=== PATIENT | male | born 1975 | race Caucasian/White ===

== ENCOUNTER 2017-01-29 11:41 | Emergency (ER) | payer BC ==
[~2017-01-29] VITALS: Ht 185.4 cm; Wt 81.6 kg
[~2017-01-29 11:41] MED LIST: AUGMENTIN 875 M1 TAB PO; BACTRIM DS 8001 TA1 PO; BENADRYL25 M2 PO; CEPHALEXIN500 M1 PO; CIPRO500 MG PO; LIDEX 0.05% CRE15 GM T; MEDROL DOSEPAK4 MG PO; MOBIC15 MG PO; Motrin,Rufen800 MG PO; NORFLEX100 MG PO; PREDNISONE10 MG PO; ULTRAM50 MG PO; VICODIN 5/500 505 MG PO; VICODIN 500 MG-1 TAB PO; VOLTAREN50 M1 PO
[2017-01-29] MEDS ORDERED: Bactrim DS PO (11:47)
[2017-01-29] MEDS ORDERED: CLINDAMYCIN150 MG PO (11:53)
[2017-01-29] MEDS ORDERED: NAPROSYN500 MG PO (11:53)
== END 2017-01-29 12:01 | disposition home or self-care (01) ==
LOC: ED 11:41
DX: K04.7 Periapical abscess without sinus (principal); R03.0 Elevated blood-pressure reading, without diagnosis of hypertension; F17.200 Nicotine dependence, unspecified, uncomplicated

== ENCOUNTER 2017-08-28 13:44 | Emergency (ER) | payer BC ==
[~2017-08-28] VITALS: Ht 185.4 cm; Wt 92.5 kg
[~2017-08-28 13:44] MED LIST changes: +Bactrim DS PO; +CLINDAMYCIN150 MG PO; +NAPROSYN500 MG PO
[2017-08-28] MEDS ORDERED: Motrin,Rufen800 MG PO (15:13)
== END 2017-08-28 15:19 | disposition home or self-care (01) ==
LOC: ED 13:44
DX: S49.91XA Unspecified injury of right shoulder and upper arm, initial encounter (principal); F17.200 Nicotine dependence, unspecified, uncomplicated; W19.XXXA Unspecified fall, initial encounter; Y93.89 Activity, other specified; Y92.89 Other specified places as the place of occurrence of the external cause; Y99.8 Other external cause status

== ENCOUNTER 2017-09-27 07:17 | Emergency (ER) | payer BC ==
[~2017-09-27] VITALS: Ht 185.4 cm; Wt 93.0 kg
[2017-09-27 07:44] LABS: BASO # 0.1 10*3/uL (0.0-0.1); BASO % 0.6 % (0.0-1.0); EOS # 0.5 10*3/uL (0.0-0.4); EOS % 3.2 % (1.0-4.0); HEMATOCRIT 48.7 % (42.0-52.0); HEMOGLOBIN 16.9 g/dl (14.0-18.0); LYMPH # 2.8 10*3/uL (1.3-4.4); LYMPH % 17.9 % (27.0-41.0); MEAN CELL VOLUME 90.9 fl (80.0-94.0); MEAN CORPUSCULAR HGB 31.5 pg (27.0-31.0); MEAN CORPUSCULAR HGB CONC 34.7 g/dl (33.0-37.0); MEAN PLATELET VOLUME 8.6 fl (9.6-12.3); MONO # 1.5 10*3/uL (0.1-1.0); MONO % 9.3 % (3.0-9.0); NEUT # 10.8 10*3/uL (2.3-7.9); NEUT % 68.4 % (47.0-73.0); PLATELET COUNT AUTOMATED 387 10*3/uL (130-400); RED BLOOD COUNT 5.36 10*6/uL (4.50-5.90); RED CELL DISTRI WIDTH 12.5 % (0-14.5); WHITE BLOOD COUNT 15.7 10*3/uL (4.8-10.8)
[2017-09-27 08:04] LABS: ALBUMIN 3.7 gm/dl (3.1-4.5); ALKALINE PHOSPHATASE 122 U/L (45-117); BUN 9 mg/dl (7-24); CHLORIDE 108 mmol/L (98-107); CREATININE 0.97 mg/dL (0.70-1.30); POTASSIUM 3.8 mmol/L (3.5-5.1); SGOT/AST 19 IU/L (3-35); SGPT/ALT 36 U/L (12-78); SODIUM 140 mmol/L (136-145); TOTAL PROTEIN 7.6 gm/dL (6.4-8.2)
[2017-09-27 08:07] LABS: TROPONIN I < 0.015 ng/ml (<0.045)
[2017-09-27] MEDS ORDERED: AMOXICILLIN500 M2 PO (09:08)
[2017-09-27] MEDS ORDERED: CLINDAMYCIN150 MG PO (09:22)
[2017-09-27] MEDS ORDERED: Motrin,Rufen800 MG PO (09:22)
== END 2017-09-27 09:51 | disposition home or self-care (01) ==
LOC: ED 07:17
PROVIDERS: Emergency Medicine
DX: R07.9 Chest pain, unspecified (principal); K04.7 Periapical abscess without sinus; Z98.890 Other specified postprocedural states; Z79.899 Other long term (current) drug therapy

== ENCOUNTER → 2018-05-10 | Outpatient (CLI) | payer BC ==
[~2018-05-10] MED LIST changes: +AMOXICILLIN500 M2 PO
== END | disposition home or self-care (01) ==
LOC: LAB 18:01
DX: Z01.812 Encounter for preprocedural laboratory examination (principal)

== ENCOUNTER 2018-05-29 12:51 | Emergency (ER) | payer BC ==
[~2018-05-29] VITALS: Ht 185.4 cm; Wt 83.9 kg
[2018-05-29] MEDS ORDERED: SEPTDS PO (13:29)
== END 2018-05-29 13:41 | disposition home or self-care (01) ==
LOC: ED 12:51
DX: S40.862A Insect bite (nonvenomous) of left upper arm, initial encounter (principal); L03.114 Cellulitis of left upper limb; W57.XXXA Bitten or stung by nonvenomous insect and other nonvenomous arthropods, initial encounter; Y93.89 Activity, other specified; Y92.89 Other specified places as the place of occurrence of the external cause; Y99.8 Other external cause status

== ENCOUNTER → 2020-06-04 | Outpatient (CLI) | payer BC ==
[~2020-06-04] MED LIST changes: +PERCOCET 7.5-31 EACH PO; +SEPTDS PO
== END | disposition home or self-care (01) ==
LOC: COVID19 15:05
PROVIDERS: ATTEND Family Medicine
DX: Z20.828 Contact with and (suspected) exposure to other viral communicable diseases (principal)

== ENCOUNTER 2020-11-23 18:33 | Emergency (ER) | payer BC ==
[~2020-11-23] VITALS: Wt 89.8 kg
[2020-11-23 19:17] LABS: BASO # 0.1 10*3/uL (0.0-0.1); BASO % 0.5 % (0.0-1.0); EOS % 0.2 % (1.0-4.0); HEMATOCRIT 47.2 % (42.0-52.0); LYMPH # 1.4 10*3/uL (1.3-4.4); LYMPH % 11.5 % (27.0-41.0); MEAN CELL VOLUME 90.1 fl (80.0-94.0); MEAN CORPUSCULAR HGB 31.7 pg (27.0-31.0); MEAN CORPUSCULAR HGB CONC 35.2 g/dl (33.0-37.0); MEAN PLATELET VOLUME 9.3 fl (9.6-12.3); MONO # 1.1 10*3/uL (0.1-1.0); MONO % 9.2 % (3.0-9.0); NEUT # 9.5 10*3/uL (2.3-7.9); NEUT % 78.1 % (47.0-73.0); PLATELET COUNT AUTOMATED 265 10*3/uL (130-400); RED BLOOD COUNT 5.24 10*6/uL (4.50-5.90); RED CELL DISTRI WIDTH 11.6 % (0-14.5); WHITE BLOOD COUNT 12.1 10*3/uL (4.8-10.8)
[2020-11-23 19:34] LABS: ALBUMIN 3.1 gm/dl (3.1-4.5); ALKALINE PHOSPHATASE 93 U/L (45-117); BUN 7 mg/dl (7-24); CHLORIDE 100 mmol/L (98-107); CREATININE 0.91 mg/dL (0.70-1.30); POTASSIUM 3.9 mmol/L (3.5-5.1); SGOT/AST 13 IU/L (3-35); SGPT/ALT 26 U/L (12-78); SODIUM 131 mmol/L (136-145); TOTAL PROTEIN 7.6 gm/dL (6.4-8.2)
== END 2020-11-23 22:00 | disposition home or self-care (01) ==
LOC: ED 18:33
PROVIDERS: Internal Medicine
DX: A41.9 Sepsis, unspecified organism (principal); Z20.822 Contact with and (suspected) exposure to COVID-19; B34.9 Viral infection, unspecified; R79.82 Elevated C-reactive protein (CRP); E87.1 Hypo-osmolality and hyponatremia

== ENCOUNTER 2020-12-04 18:13 | Emergency (ER) | payer BC ==
[~2020-12-04] VITALS: Wt 86.2 kg
[2020-12-04] MEDS ORDERED: PREDNISONE20 M1 PO (20:25)
== END 2020-12-04 20:37 | disposition home or self-care (01) ==
LOC: ED 18:13
DX: G51.0 Bell's palsy (principal); Z98.890 Other specified postprocedural states

== ENCOUNTER → 2020-12-09 | Outpatient (CLI) | payer BC ==
[~2020-12-09] MED LIST changes: +PREDNISONE20 M1 PO
[2020-12-09 17:52] LABS: BASO % 0.2 % (0.0-1.0); EOS % 0.1 % (1.0-4.0); HEMATOCRIT 40.4 % (42.0-52.0); LYMPH # 1.8 10*3/uL (1.3-4.4); LYMPH % 10.1 % (27.0-41.0); MEAN CORPUSCULAR HGB CONC 33.7 g/dl (33.0-37.0); MEAN PLATELET VOLUME 8.6 fl (9.6-12.3); MONO # 0.7 10*3/uL (0.1-1.0); MONO % 3.6 % (3.0-9.0); NEUT # 15.2 10*3/uL (2.3-7.9); NEUT % 85.1 % (47.0-73.0); PLATELET COUNT AUTOMATED 634 10*3/uL (130-400); RED BLOOD COUNT 4.39 10*6/uL (4.50-5.90); RETICULOCYTE % 0.92 % (0.50-2.50); WHITE BLOOD COUNT 17.9 10*3/uL (4.8-10.8)
[2020-12-09 18:00] LABS: BILIRUBIN Negative (Negative); BLOOD Negative (Negative); CLARITY Clear (Clear); COLOR Yellow (Yellow); GLUCOSE Negative (Negative); KETONE Negative (Negative); LEUKO ESTERASE Negative (Negative); NITRITE Negative (Negative); SPECIFIC GRAVITY 1.025 (1.001-1.030)
[2020-12-09 18:08] LABS: ALBUMIN 2.5 gm/dl (3.1-4.5); ALKALINE PHOSPHATASE 94 U/L (45-117); BUN 14 mg/dl (7-24); CHLORIDE 106 mmol/L (98-107); CHOLESTEROL 151 mg/dL (<200); GAMMA GLUTAMYL TRANSPEPTIDASE 62 U/L (15-85); IRON 37 ug/dL (65-175); LDL CHOLESTEROL 96 mg/dL (9-159); POTASSIUM 3.4 mmol/L (3.5-5.1); SGOT/AST 12 IU/L (3-35); SODIUM 138 mmol/L (136-145); TOTAL IRON BINDING CAPACITY 236 ug/dl (250-450); TRIGLYCERIDES 94 mg/dl (<150); URIC ACID 2.5 mg/dL (3.5-7.2)
[2020-12-09 18:16] LABS: SGPT/ALT 36 U/L (12-78)
[2020-12-09 18:23] LABS: BACTERIA 1+; CALCIUM OXALATE CRYSTALS Trace; EPITHELIAL CELLS 0-2; MUCOUS 1+; RBC 0-2 rbc/hpf (0-2)
[2020-12-09 19:04] LABS: FERRITIN 346.1 ng/mL (22.0-322.0); VITAMIN D, 25-HYDROXY 65.6 ng/mL (30-100)
[2020-12-10 08:08] LABS: RHEUMATOID ARTHRITIS FACTOR <10.0 IU/mL (0.0-13.9)
[2020-12-10 15:07] LABS: ANTI-DSDNA ANTIBODIES 1 IU/mL (0-9)
== END | disposition home or self-care (01) ==
LOC: LAB 17:13
PROVIDERS: ATTEND Family Medicine
DX: E78.5 Hyperlipidemia, unspecified (principal); R79.89 Other specified abnormal findings of blood chemistry; R53.83 Other fatigue; E55.9 Vitamin D deficiency, unspecified

== ENCOUNTER → 2021-01-20 | Outpatient (CLI) | payer BC ==
[2021-01-20 17:57] LABS: HEMATOCRIT 42.5 % (42.0-52.0); MEAN CELL VOLUME 92.4 fl (80.0-94.0); MEAN CORPUSCULAR HGB 31.3 pg (27.0-31.0); MEAN CORPUSCULAR HGB CONC 33.9 g/dl (33.0-37.0); MEAN PLATELET VOLUME 8.5 fl (9.6-12.3); PLATELET COUNT AUTOMATED 417 10*3/uL (130-400); RED CELL DISTRI WIDTH 13.6 % (0-14.5); RETICULOCYTE % 1.74 % (0.50-2.50); WHITE BLOOD COUNT 12.5 10*3/uL (4.8-10.8)
[2021-01-20 18:24] LABS: IRON 55 ug/dL (65-175); TOTAL IRON BINDING CAPACITY 303 ug/dl (250-450)
[2021-01-20 18:36] LABS: TOTAL CELLS COUNTED 100 #CELLS
[2021-01-20 18:37] LABS: PLATELET SUFFICIENCY HIGH (NORMAL)
[2021-01-21 05:06] LABS: TOTAL PROTEIN, SERUM 6.8 g/dL (6.0-8.5)
[2021-01-21 16:08] LABS: A/G RATIO 1.1 (0.7-1.7); ALBUMIN 3.6 g/dL (2.9-4.4); ALPHA-1-GLOBULIN 0.3 g/dL (0.0-0.4); ALPHA-2-GLOBULIN 0.7 g/dL (0.4-1.0); BETA GLOBULIN 1.2 g/dL (0.7-1.3); GLOBULIN, TOTAL 3.2 g/dL (2.2-3.9); M-SPIKE Not Observed g/dL (Not Observed)
[2021-01-23 16:08] LABS: IGG P18 AB Absent (.); IGG P23 AB Absent (.); IGG P28 AB Absent (.); IGG P30 AB Absent (.); IGG P39 AB Present (.); IGG P41 AB Present (.); IGG P45 AB Absent (.); IGG P58 AB Absent (.); IGG P63 AB Absent (.); IGG P66 AB Absent (.); IGM P23 AB Present (.); IGM P39 AB Absent (.); IGM P41 AB Present (.); LYME IGG WB INTERPRETATION Negative (.); LYME REFLEX CHARGE CHG
[2021-01-26 12:03] LABS: LYME IGM WB INTERPRETATION Positive (.)
== END | disposition home or self-care (01) ==
LOC: LAB 17:15
PROVIDERS: ATTEND Family Medicine
DX: E78.5 Hyperlipidemia, unspecified (principal); R79.89 Other specified abnormal findings of blood chemistry; R53.83 Other fatigue; R74.8 Abnormal levels of other serum enzymes